=== PATIENT | female | born 1965 | race African-American/Black ===

== ENCOUNTER 2022-08-15 11:10 | Emergency (ER) | payer OTHER, MEDICARE, SELFPAY ==
[2022-08-15 11:31] VITALS: BP 167/88; PULSE 78; RESP 20; TEMP 36.6; O2SAT 100
--- NOTE | 2022-08-15 11:35 | ED.URI ---
HPI - URI/Sore Throat General Chief Complaint: Upper Respiratory Infection Stated Complaint: uri Time Seen by Provider: 08/15/22 11:35 Source: patient, RN notes reviewed and old records reviewed Mode of arrival: ambulatory Limitations: no limitations History of Present Illness HPI Narrative: 57 year old female who presents to [facility] care with 10 day history of sinus congestion, cough no fevers with some ear discomfort and sore throat. Patient reports that she has had taken home COVID test which was negative. Patient reports that her throat is sore describes as aching rates pain as 7/10. Patient has been taking Coricidin brand decongestant. MD elicited complaint: cough, sore throat, rhinorrhea, nasal congestion and sinus pain Onset (ago): day(s) (10) Pain scale (0-10): 7 Treatments prior to arrival: other (Coricidin brand decogestant) Related Data Home Medications Medication Instructions Recorded Confirmed Lactobacillus cap PO BID 11/11/19 acidophilus-Bifidobac.animalis 31 billion cell capsule (Prodigen) amlodipine 5 mg tablet (Norvasc) 5 mg PO DAILY 11/11/19 11/11/19 lisinopril 40 mg tablet 40 mg PO DAILY 11/11/19 11/11/19 multivit-min 67-folic acid 1 tablet PO 11/11/19 mg-alpha lipoic 100 mg-lutein 1 mg tablet (OneVite) nebivolol 20 mg tablet mg 08/15/22 tramadol 50 mg tablet mg 08/15/22 zolpidem 10 mg tablet mg 08/15/22 Allergies Allergy/AdvReac Type Severity Reaction Status Date / Time oxybutynin Allergy Mild CHEST Verified 03/01/09 12:38 PAIN, NUMBNESS FINGERS Review of Systems Review of Systems: CONSTITUTIONAL: Denies fever, chills, or sweats. EYES: Denies visual changes, redness, or discharge. ENT: Positive for rhinorrhea, congestion, sore throat, or otalgia. CARDIOVASCULAR: Denies chest pain, palpitations, or edema. RESPIRATORY: Positive fro cough denies dyspnea. GASTROINTESTINAL: Denies abdominal pain, nausea, vomiting, or diarrhea. GENITOURINARY: Denies dysuria or hematuria. SKIN: Denies rash or itching. MUSCULOSKELETAL: Denies back pain, joint pain, or myalgia. NEUROLOGIC: Denies headache, numbness, or weakness. PSYCHIATRIC: Denies anxiety or depression. All systems reviewed & are unremarkable except as noted in HPI and below PMFSH Past Medical History Medical History (Updated 08/18/22 @ 19:33 by Ana Chavira NP) Arthritis Elevated cholesterol History of sinus problem Hypertension Kidney stones UTI (urinary tract infection) Surgical History Surgical History (Updated 08/18/22 @ 19:33 by Ana Chavira NP) H/O lithotripsy H/O: hysterectomy History of open heart surgery 2 vessel and mitral valve History of tonsillectomy Previous section Total knee replacement status bilateral Family History Family History (Updated 08/18/22 @ 19:34 by Ana Chavira NP) Mother Diabetes mellitus Sibling Hypertension Heart disease Father Heart disease Social History Social History (Updated 08/18/22 @ 19:34 by Ana Chavira NP) Smoking status: Never smoker Alcohol intake: current Alcohol use details: rare social Substance use type: does not use Living arrangements: with family Additional occupation/education comments: teacher Gender identity (if verbalized by the patient): Female Comments At time of signature, agree with nursing past medical, surgical, social and family history. There is no relevant family history pertinent to the presenting complaint Exam Narrative: GENERAL: Well-appearing, well-nourished, and in no acute distress. HEAD: Normocephalic, atraumatic. EYES: PERRLA and EOMI. ENT: Nares red membranes with clear sinus rhinorrhea no epistaxis. Mucous membranes moist.TM's normal with dull light reflex, throat red with no lesions or tonsils present,post nasal drainage NECK: Supple.no lymphadenopathy CHEST: Clear to auscultation. No respiratory distress. cough noted with SAO2 100% on room air HEART: Regular
--- NOTE | 2022-08-15 11:55 | ED.URI ---
HPI - URI/Sore Throat General Chief Complaint: Upper Respiratory Infection Stated Complaint: uri Time Seen by Provider: 08/15/22 11:35 Source: patient, RN notes reviewed and old records reviewed Mode of arrival: ambulatory Limitations: no limitations Related Data Home Medications Medication Instructions Recorded Confirmed Lactobacillus cap PO BID 11/11/19 acidophilus-Bifidobac.animalis 31 billion cell capsule (Prodigen) amlodipine 5 mg tablet (Norvasc) 5 mg PO DAILY 11/11/19 11/11/19 lisinopril 40 mg tablet 40 mg PO DAILY 11/11/19 11/11/19 multivit-min 67-folic acid 1 tablet PO 11/11/19 mg-alpha lipoic 100 mg-lutein 1 mg tablet (OneVite) nebivolol 20 mg tablet mg 08/15/22 tramadol 50 mg tablet mg 08/15/22 zolpidem 10 mg tablet mg 08/15/22 Allergies Allergy/AdvReac Type Severity Reaction Status Date / Time oxybutynin Allergy Mild CHEST Verified 03/01/09 12:38 PAIN, NUMBNESS FINGERS PMFSH Past Medical History Medical History (Updated 08/16/22 @ 00:01 by Sherri Harvey) Hypertension Social History Social History Gender identity (if verbalized by the patient): Female Course Vital Signs Vital signs: Vital Signs Temperature 36.6 C 08/15/22 11:31 Pulse Rate 78 08/15/22 11:31 Respiratory Rate 20 08/15/22 11:31 Blood Pressure 167/88 H 08/15/22 11:31 Pulse Oximetry 100 08/15/22 11:31 Oxygen Delivery Room Air 08/15/22 11:31 Temperature 36.6 C 08/15/22 11:31 Pulse Rate 78 08/15/22 11:31 Respiratory Rate 20 08/15/22 11:31 Blood Pressure 167/88 H 08/15/22 11:31 Pulse Oximetry 100 08/15/22 11:31 Oxygen Delivery Room Air 08/15/22 11:31 MDM - URI/Sore Throat Lab Data Labs: Strep Screen Presumptive Negative *(Reference Range: Negative)* Discharge Plan Discharge Clinical Impression: Sinusitis, Pharyngitis Patient Disposition: Home, Self-Care Condition: Stable Instructions: Antibiotic Form, Sinusitis (ED) Additional Instructions: Increase fluids especially juices and water Myco-wwi-jvnazjw cough and cold medicine of your choice for your symptoms Zyrtec,Claritin,,or Jocy daily and include Coricidin brand decongestant heat to the face 20-30 minutes 4-6 times a day for pain Salt water gargles, throat lozenges or throat sprays as desired Antibiotic as directed--finished the medication Tylenol or ibuprofen for any fever pain If your symptoms persist, change or worsen significantly before you can contact your personal physician then please, without delay, go to the emergency department for further evaluation. Follow-up with PCP in 7-10 days or sooner if needed Follow up with PCP soon in regards to your blood pressure which is elevated above threshold for referral. Blood pressure above 120/80 may indicate pre-hypertension. 167/88 blood pressure today Prescriptions: New azithromycin 250 mg tablet See Rx Instructions .ROUTE .COMPLEX Qty: 6 0RF Rx Instructions: For 250 mg dose pack: take 500 mg today (day 1), then 250 mg for 4 days (days 2-5) No Action Prodigen 31 billion cell Capsule PO BID lisinopril 40 mg Tablet 40 mg PO DAILY amlodipine [Norvasc] 5 mg Tablet 5 mg PO DAILY OneVite 1-100-1 mg tablet PO tramadol 50 mg tablet zolpidem 10 mg tablet nebivolol 20 mg tablet Follow-up/Referrals: UNKNOWN,DOCTOR [Primary Care Provider] - Time of Disposition: 11:59
== END 2022-08-15 12:18 | disposition home or self-care (01) ==
PROVIDERS: Emergency Provider Registered Nurse
DX: J32.9 Chronic sinusitis, unspecified (principal); J02.9 Acute pharyngitis, unspecified; M19.90 Unspecified osteoarthritis, unspecified site; E78.00 Pure hypercholesterolemia, unspecified; I10 Essential (primary) hypertension; Z96.653 Presence of artificial knee joint, bilateral
CPT/HCPCS: 87081; 87880; 99213; G0463

== ENCOUNTER 2023-07-25 14:18 | Emergency (ER) | payer OTHER, MEDICARE, SELFPAY ==
[2023-07-25 14:34] VITALS: BP 162/93; PULSE 89; RESP 16; TEMP 36.6; O2SAT 98
--- NOTE | 2023-07-25 15:02 | ED.URI ---
HPI - URI/Sore Throat General Chief Complaint: Upper Respiratory Infection Stated Complaint: throat hurts, chest congestion Time Seen by Provider: 07/25/23 15:02 Source: patient Mode of arrival: ambulatory Limitations: no limitations History of Present Illness HPI Narrative: 58-year-old female presents with complaint of nasal congestion, postnasal drainage, cough for 2 weeks. Reports that symptoms started while out of town in [place]. Patient not taking any rzwr-tzr-nujcola medications to treat her symptoms. States cough has worsened with chest congestion. Afebrile. No chest pain or shortness of breath. All systems reviewed and negative except as noted above. Related Data Home Medications Medication Instructions Recorded Confirmed Lactobacillus cap PO BID 11/11/19 acidophilus-Bifidobac.animalis 31 billion cell capsule (Prodigen) amlodipine 5 mg tablet (Norvasc) 5 mg PO DAILY 11/11/19 11/11/19 lisinopril 40 mg tablet 40 mg PO DAILY 11/11/19 11/11/19 multivit-min 67-folic acid 1 tablet PO 11/11/19 mg-alpha lipoic 100 mg-lutein 1 mg tablet (OneVite(with lutein)) nebivolol 20 mg tablet mg 08/15/22 tramadol 50 mg tablet mg 08/15/22 zolpidem 10 mg tablet mg 08/15/22 Allergies Allergy/AdvReac Type Severity Reaction Status Date / Time oxybutynin Allergy Mild CHEST Verified 03/01/09 12:38 PAIN, NUMBNESS FINGERS Review of Systems Review of Systems: CONSTITUTIONAL: Denies fever, chills, or sweats. reports fatigue. EYES: Denies visual changes, redness, or discharge. ENT: Reports rhinorrhea, congestion. Denies sore throat, or otalgia. CARDIOVASCULAR: Denies chest pain, palpitations, or edema. RESPIRATORY: Reports cough. Denies dyspnea. GASTROINTESTINAL: Denies abdominal pain, nausea, vomiting, or diarrhea. GENITOURINARY: Denies dysuria or hematuria. SKIN: Denies rash or itching. MUSCULOSKELETAL: Denies back pain, joint pain, or myalgia. NEUROLOGIC: Denies headache, numbness, or weakness. PSYCHIATRIC: Denies anxiety or depression. All other systems reviewed are negative, except as documented in HPI. [facility] Past Medical History Medical History (Updated 07/25/23 @ 15:08 by Juliann Felder NP) Arthritis Elevated cholesterol History of sinus problem Hypertension Kidney stones UTI (urinary tract infection) Surgical History Surgical History (Updated 08/18/22 @ 19:33 by Ana Chavira NP) H/O lithotripsy H/O: hysterectomy History of open heart surgery 2 vessel and mitral valve History of tonsillectomy Previous section Total knee replacement status bilateral Family History Family History (Updated 08/18/22 @ 19:34 by Aan Chavira NP) Mother Diabetes mellitus Sibling Hypertension Heart disease Father Heart disease Social History Social History (Updated 08/18/22 @ 19:34 by Ana Chavira NP) Smoking status: Never smoker Alcohol intake: current Alcohol use details: rare social Substance use type: does not use Living arrangements: with family Additional occupation/education comments: teacher Gender identity (if verbalized by the patient): Female Comments At time of signature, agree with nursing past medical, surgical, social and family history. There is no relevant family history pertinent to the presenting complaint. Exam Narrative: GENERAL: This is a well-nourished, well-developed patient, in no apparent distress. HEAD: normocephalic, atraumatic. EYES: PERRL. Sclera clear/white. Vision is grossly intact. EARS: External ears normal, auditory canals clear and without drainage, TMs normal without perforation. Hearing grossly intact. NOSE: External nose normal with purulent nasal drainage, erythema to bilateral nares without swelling. Bilateral maxillary sinus tenderness on palpation. THROAT: Mucous membranes moist, Erythema postnasal drainage. NECK: Neck supple, non-tender without lymphadenopathy, ma
== END 2023-07-25 15:11 | disposition home or self-care (01) ==
PROVIDERS: Emergency Provider Nurse Practitioner Family; PCP Physician Assistant
DX: J06.9 Acute upper respiratory infection, unspecified (principal); R05.9 Cough, unspecified; M19.90 Unspecified osteoarthritis, unspecified site; I10 Essential (primary) hypertension; Z96.653 Presence of artificial knee joint, bilateral
CPT/HCPCS: 99213; G0463

== ENCOUNTER 2024-08-10 10:02 | Emergency (ER) | payer OTHER, MEDICARE, SELFPAY ==
--- NOTE | 2024-08-10 10:12 | ED.URI ---
HPI - URI/Sore Throat General Chief Complaint: Upper Respiratory Infection Stated Complaint: cough,sore throat Time Seen by Provider: 08/10/24 10:33 Source: patient and RN notes reviewed Mode of arrival: ambulatory Limitations: no limitations History of Present Illness HPI Narrative: 59-year-old female presents with concern for 2 week history of sinus drainage, pressure, headaches, cough, chest congestion. She reports she has been taking vikc-xev-ylzprzc medications without relief, feels like they are making worse score MD elicited complaint: cough and sore throat Related Data Home Medications Medication Instructions Recorded Confirmed amlodipine 5 mg tablet (Norvasc) 5 mg PO DAILY 11/11/19 08/10/24 lisinopril 40 mg tablet 40 mg PO DAILY 11/11/19 08/10/24 multivit-min 67-folic acid 1 1 tablet PO DAILY 11/11/19 08/10/24 mg-alpha lipoic 100 mg-lutein 1 mg tablet (OneVite(with lutein)) zolpidem 10 mg tablet 10 mg PO HS 08/15/22 08/10/24 Linzess 1 tab-cap PO DAILY 08/10/24 08/10/24 fluticasone propionate 50 1 spray intranasal DAILY 08/10/24 08/10/24 mcg/actuation nasal spray,suspension meloxicam 7.5 mg tablet 7.5 mg PO DAILY 08/10/24 08/10/24 Allergies Allergy/AdvReac Type Severity Reaction Status Date / Time oxybutynin Allergy Mild CHEST Verified 03/01/09 12:38 PAIN, NUMBNESS FINGERS [id number] Reductase AdvReac Vomiting Verified 08/10/24 10:41 Inhibitor hydrocortisone/oral AdvReac Vomiting Uncoded 08/10/24 10:41 tylenol #3 AdvReac Vomiting Uncoded 08/10/24 10:41 Review of Systems Review of Systems: CONSTITUTIONAL: Reports malaise. Denies chills, sweats, or fever. EYES: Denies visual changes, redness, or discharge. ENT: Reports rhinorrhea, congestion, otalgia and sore throat. CARDIOVASCULAR: Denies chest pain, palpitations, or edema. RESPIRATORY: Reports cough and chest congestion. Denies dyspnea. GASTROINTESTINAL: Denies abdominal pain, nausea, vomiting, diarrhea SKIN: Denies rash or itching. MUSCULOSKELETAL: Denies myalgia. NEUROLOGIC: Denies headache. All systems reviewed & are unremarkable except as noted in HPI and below PMFSH Past Medical History Medical History (Updated 08/10/24 @ 10:44 by Mary Perez NP) Arthritis Elevated cholesterol History of sinus problem Hypertension Kidney stones UTI (urinary tract infection) Surgical History Surgical History (Updated 08/18/22 @ 19:33 by Ana Chavira NP) H/O lithotripsy H/O: hysterectomy History of open heart surgery 2 vessel and mitral valve History of tonsillectomy Previous section Total knee replacement status bilateral Family History Family History (Updated 08/18/22 @ 19:34 by Ana Chavira NP) Mother Diabetes mellitus Sibling Hypertension Heart disease Father Heart disease Social History Social History (Updated 08/18/22 @ 19:34 by Ana Chavira NP) Smoking status: Never smoker Alcohol intake: current Alcohol use details: rare social Substance use type: does not use Living arrangements: with family Additional occupation/education comments: teacher Gender identity (if verbalized by the patient): Female Comments At time of signature, agree with nursing past medical, surgical, social and family history. There is no relevant family history pertinent to the presenting complaint Exam Narrative: GENERAL: Well-appearing, well-nourished, and in no acute distress. HEAD: Normocephalic EYES: PERRLA, conjunctivae clear ENT: Nares clear. Mucous membranes moist. TM pearly hutchinson with dull light reflex bilaterally; no tragal tenderness. Oropharynx not erythematous without lesions. Tonsils not enlarged and without exudate, no drooling, no hoarseness, no trismus, uvula midline. NECK: Supple. No lymphadenopathy CHEST: Clear to auscultation, breath sounds equal. No wheezing, rhonchi, rales, or stridor. No respiratory distress, speaks in full sentences. Cough n
[2024-08-10 10:13] VITALS: BP 170/93; PULSE 83; RESP 20; TEMP 36.7; O2SAT 99
== END 2024-08-10 10:48 | disposition home or self-care (01) ==
PROVIDERS: Emergency Provider Nurse Practitioner; PCP Physician Assistant
DX: J06.9 Acute upper respiratory infection, unspecified (principal); R05.9 Cough, unspecified; M19.90 Unspecified osteoarthritis, unspecified site; E78.00 Pure hypercholesterolemia, unspecified; I10 Essential (primary) hypertension; Z96.653 Presence of artificial knee joint, bilateral
CPT/HCPCS: 99213; G0463